=== PATIENT | male | born 1955 | race Caucasian/White ===

== ENCOUNTER 2020-11-25 13:25 | Emergency (ER) | payer SELFPAY ==
[~2020-11-25] VITALS: Ht 167.6 cm; Wt 86.2 kg
[2020-11-25 13:25] VITALS: BP_SYST 159
[2020-11-25 14:08] VITALS: BP_SYST 134
[2020-11-25] MEDS ORDERED: CEPH250C PO (14:10)
== END 2020-11-25 14:15 | disposition home or self-care (01) ==
LOC: SED 13:25
DX: L03.115 Cellulitis of right lower limb (principal)
CPT/HCPCS: 99283

== ENCOUNTER 2022-11-17 08:36 | Emergency (ER) | payer OTHER ==
[~2022-11-17] VITALS: Ht 172.7 cm; Wt 78.5 kg
[~2022-11-17 08:36] MED LIST: CEPH250C PO
[2022-11-17 08:46] VITALS: BP_SYST 167
[2022-11-17 10:19] VITALS: BP_SYST 154
[2022-11-17] MEDS ORDERED: IBUP-1971 PO (11:04)
[2022-11-17] MEDS ORDERED: TRAM50TA2 PO (11:04)
== END 2022-11-17 11:16 | disposition left against medical advice (07) ==
LOC: SED 08:36
DX: R10.9 Unspecified abdominal pain (principal); Z79.899 Other long term (current) drug therapy
CPT/HCPCS: 76376; 99284